=== PATIENT | female | born 1990 ===

== ENCOUNTER 2024-07-06 06:35 | Day surgery (SDC) | payer OTHER ==
[~2024-07-06] VITALS: Ht 162.6 cm; Wt 95.9 kg
[~2024-07-06 06:35] MED LIST: Ondansetron 4 MG/2 ML VIAL IV PRN
[2024-07-06] MEDS ORDERED: ZYRTEC 10MG10 MG PO (07:02)
[2024-07-06 07:34] VITALS: BP 112/58; PULSE 67; TEMP 97
[2024-07-06] MEDS ORDERED: LR 1,000 ML IV SCH (08:00)
[2024-07-06] MEDS ORDERED: Lidocaine PF 2% (20 MG/ML) 5 ML VIAL ONE (08:02)
[2024-07-06] MEDS ORDERED: fentaNYL 50 MCG/ML 2 ML VIAL ONE (08:02)
[2024-07-06 08:35] VITALS: BP 98/62; PULSE 72; TEMP 97.2
--- NOTE | 2024-07-06 09:20 | NUR ---
0835- PT RETURNS FROM ENDO PROCEDURE VIA CART AND RN ASSIST TO GI [facility] 4. PT AMBULATES FROM CART TO RECLINER WITH RN ASSIST. MONITORS ON AND ALARMS SET. CALL LIGHT WITHIN REACH. REPORT RECIEVED FROM ENDO RN. PT ALERT AND ORIENTED. REQUESTING APPLE JUICE TO DRINK. PT DENIES ANY PAIN OR NAUSEA. 0850- PT REQUESTING CRACKER TO EAT. TOLERATING FOOD AND DRINK WELL. NO COMPLICATIONS NOTED. 0855- DISCHARGE INSTRUCTIONS GIVEN TO PT. ALL QUESTIONS ANSWERED IN FULL. DISCHARGE INSTRUCTIONS GIVEN TO PT. IV REMOVED PER ORDERS. 0905- PT TRANSFERRED OUT OF THE HOSPITAL VIA WHEELCHAIR TO PRIVATE VEHICLE DRIVEN BY SPOUSE.
== END 2024-07-06 09:05 ==
LOC: SDCO 06:35
DX: Z12.11 Encounter for screening for malignant neoplasm of colon (principal)
CPT/HCPCS: J2704; J3010; J7120